=== PATIENT | female | born 1955 ===

== ENCOUNTER 2023-09-05 08:00 | Outpatient (CLI) | payer OTHER ==
[~2023-09-05] VITALS: Ht 162.6 cm; Wt 86.2 kg
[2023-09-05] MEDS ORDERED: COZAAR50 MG PO (12:31)
[2023-09-05] MEDS ORDERED: SINGULAIR10 MG PO (12:32)
[2023-09-05] MEDS ORDERED: LIPITOR40 MG PO (12:32)
[2023-09-05] MEDS ORDERED: TOPROL XL25 M1 PO (12:32)
[2023-09-05 12:39] LABS: URINE APPEARANCE Clear; URINE BILIRRUBIN Negative (NEGATIVE); URINE BLOOD Moderate; URINE COLOR Yellow; URINE GLUCOSE Negative (NEGATIVE); URINE KETONE Negative (NEGATIVE); URINE LEUKOCYTE Moderate; URINE NITRATE Negative; URINE PROTEIN Negative (NEGATIVE)
[2023-09-05 12:42] LABS: URINE BACTERIA 495.1 uL (0.0-1933); URINE EPITHELIAL CELLS 26.7 uL (0.0-38.8); URINE RBC 201.7 uL (0.0-20.8); URINE WBC 196.9 uL (0.0-23.2)
[2023-09-05 12:43] LABS: HEMATOCRIT 46.8 % (36.0-45.00); HEMOGLOBIN 15.9 g/dL (12.0-15.00); MEAN CELL VOLUME 87.4 fL (80.00-100.00); MEAN CORPUSCULAR HEMOGLOBIN 29.8 pg (27.00-32.0); MEAN CORPUSCULAR HGB CONC 34.1 g/dl (32.0-36.0); PLATELET COUNT 218 K/uL (150-450); RED BLOOD COUNT 5.35 M/uL (4.00-6.00)
[2023-09-05 12:56] LABS: PARTIAL THROMBOPLASTIN TIME 28.3 SECONDS (22.0-34.0); PROTHROMBIN TIME 10.5 SECONDS (9.0-11.5)
[2023-09-05 13:07] LABS: ALBUMIN 3.8 gm/dL (3.4-5.0); BILIRUBIN TOTAL 0.54 mg/dL (0.3-1.2); CALCIUM 9.8 mg/dL (8.5-10.1); CREATININE SERUM 0.71 mg/dL (0.55-1.02); GFR 82.62; POTASSIUM 5.22 mEq/L (3.5-5.1); TOTAL PROTEIN 6.8 gm/dL (6.4-8.2)
== END 2023-09-05 08:01 | disposition home or self-care (01) ==
LOC: LAB 08:00 → SURH 09-12 07:00 → EDSTATUS 09-12 11:30 → SURH 09-12 11:30
PROVIDERS: ATTEND Colon & Rectal Surgery
DX: C18.7 Malignant neoplasm of sigmoid colon (principal); D12.7 Benign neoplasm of rectosigmoid junction; Z86.010 Personal history of colon polyps

== ENCOUNTER 2024-01-25 09:00 | Inpatient (IN) | payer OTHER ==
[~2024-01-25] VITALS: Ht 162.6 cm; Wt 189.6 kg
[~2024-01-25 09:00] MED LIST: COZAAR50 MG PO; LIPITOR40 MG PO; SINGULAIR10 MG PO; TOPROL XL25 M1 PO
[2024-01-25 10:30] LABS: HEMATOCRIT 48.5 % (36.0-45.00); HEMOGLOBIN 16.4 g/dL (12.0-15.00); MEAN CELL VOLUME 86.2 fL (80.00-100.00); MEAN CORPUSCULAR HEMOGLOBIN 29.2 pg (27.00-32.0); MEAN CORPUSCULAR HGB CONC 33.8 g/dl (32.0-36.0); PLATELET COUNT 211 K/uL (150-450); RED BLOOD COUNT 5.62 M/uL (4.00-6.00); RED CELL DISTRIBUTION WIDTH 13.6 % (11.5-14.5)
[2024-01-25 10:32] LABS: PH,URINE 5.5 (5.0-8.0); URINE APPEARANCE Cloudy; URINE BILIRRUBIN Negative (NEGATIVE); URINE BLOOD Moderate; URINE COLOR Dark Yellow; URINE GLUCOSE Negative (NEGATIVE); URINE KETONE Negative (NEGATIVE); URINE LEUKOCYTE Moderate; URINE NITRATE Negative; URINE PROTEIN Trace (NEGATIVE)
[2024-01-25 10:36] LABS: URINE EPITHELIAL CELLS 174.2 uL (0.0-38.8); URINE RBC 526.7 uL (0.0-20.8); URINE WBC 482.9 uL (0.0-23.2)
[2024-01-25 10:52] LABS: URINE CAST 1.22 uL (0.0-1.40)
[2024-01-25 11:34] LABS: PARTIAL THROMBOPLASTIN TIME 28.7 SECONDS (22.0-34.0); PROTHROMBIN TIME 10.9 SECONDS (9.0-11.5)
[2024-01-25 11:48] LABS: BILIRUBIN TOTAL 0.9 mg/dL (0.3-1.2); CALCIUM 9.7 mg/dL (8.5-10.1); CREATININE SERUM 0.74 mg/dL (0.55-1.02); GFR 78.52; GLOBULINA 3.1 G/DL (2.4-3.5); POTASSIUM 5.05 mEq/L (3.5-5.1); TOTAL PROTEIN 7.1 gm/dL (6.4-8.2)
[2024-02-06] MEDS ORDERED: CEFTRIAXONE SODIUM 2,000 MG VIAL IV ONE (15:30)
[2024-02-06] MEDS ORDERED: METRONIDAZOLE/SODIUM CHLORIDE 500 MG/100 ML PIGGYBACK IV ONE (15:30)
[2024-02-06] MEDS ORDERED: OMEPRAZOLE20 MG (15:34)
[2024-02-06] MEDS ORDERED: BREO ELLIPTA I1 EACH (15:34)
[2024-02-06] MEDS ORDERED: FAMOTIDINE40 MG (15:34)
[2024-02-06] MEDS ORDERED: MORPHINE SULFATE 4 MG/ML CARTRIDGE IV PRN (17:15)
[2024-02-06] MEDS ORDERED: ONDANSETRON HCL 2 MG/ML VIAL IV PRN (17:15)
[2024-02-06] MEDS ORDERED: RINGERS SOLUTION,LACTATED 1,000 ML IV SCH (17:15)
[2024-02-06] MEDS ORDERED: OxyCODONE HCL 5 MG TABLET (ROXICODONE) PO PRN (17:15)
[2024-02-06] MEDS ORDERED: ENALAPRILAT DIHYDRATE 1.25 MG/ML VIAL IV PRN (17:45)
[2024-02-06] MEDS ORDERED: MEPERIDINE HCL/PF 50 MG/ML VIAL IV PRN (18:30)
[2024-02-06] MEDS ORDERED: MORPHINE SULFATE 4 MG/ML VIAL IV ONE (18:55)
[2024-02-06] MEDS ORDERED: ACETAMINOPHEN 500 MG GEL..CAP PO SCH (20:00)
[2024-02-06 20:31] VITALS: BP 146/80; O2SAT 94
[2024-02-06 20:32] LABS: HEMATOCRIT 43.7 % (36.0-45.00); HEMOGLOBIN 14.8 g/dL (12.0-15.00); MEAN CELL VOLUME 86.2 fL (80.00-100.00); MEAN CORPUSCULAR HEMOGLOBIN 29.2 pg (27.00-32.0); MEAN CORPUSCULAR HGB CONC 33.8 g/dl (32.0-36.0); PLATELET COUNT 197 K/uL (150-450); RED BLOOD COUNT 5.07 M/uL (4.00-6.00); RED CELL DISTRIBUTION WIDTH 13.7 % (11.5-14.5)
[2024-02-06] MEDS ORDERED: SIMETHICONE 125 MG CAPSULE PO SCH (21:00)
[2024-02-06] MEDS ORDERED: FAMOTIDINE/PF 20 MG/2 ML VIAL IV PUSH SCH (21:00)
[2024-02-06] MEDS ORDERED: MONTELUKAST SODIUM 10 MG TABLET PO SCH (21:00)
[2024-02-06] MEDS ORDERED: METOPROLOL SUCCINATE 25 MG TAB.SR.24H PO SCH (21:00)
[2024-02-06 21:12] LABS: ABG PH 7.337 (7.35-7.45); ABG PO2 67.5 mmHg (80-100); ABG pCO2 50.1 mmHg (35-45); BASE EXCESS -0.3 mmol/l; BICARBONATE 26.3 mmol/l (23-25); SaO2 91.7 %; Tco2 27.8 mmol/l
[2024-02-06 21:19] LABS: allen test SATISFACTORY; puncture site RADIAL LEFT
[2024-02-06 21:20] LABS: o2 28 %
[2024-02-06 23:28] LABS: ABG PH 7.354 (7.35-7.45); ABG PO2 87.6 mmHg (80-100); ABG pCO2 49.3 mmHg (35-45); BASE EXCESS 0.5 mmol/l; BICARBONATE 26.8 mmol/l (23-25); SaO2 96.2 %; Tco2 28.3 mmol/l
[2024-02-06 23:29] LABS: allen test SATISFACTORY; o2 40 %; puncture site RADIAL LEFT
[2024-02-07 00:20] VITALS: BP 123/64; O2SAT 96
[2024-02-07] MEDS ORDERED: GABAPENTIN 300 MG CAPSULE PO SCH (01:00)
[2024-02-07] MEDS ORDERED: METOCLOPRAMIDE HCL 5 MG/ML VIAL IV SCH (01:00)
[2024-02-07] MEDS ORDERED: CELECOXIB 200 MG CAPSULE PO SCH (05:00)
[2024-02-07 07:19] LABS: HEMATOCRIT 42.1 % (36.0-45.00); HEMOGLOBIN 14.7 g/dL (12.0-15.00); MEAN CELL VOLUME 85.6 fL (80.00-100.00); MEAN CORPUSCULAR HEMOGLOBIN 29.9 pg (27.00-32.0); PLATELET COUNT 172 K/uL (150-450); RED BLOOD COUNT 4.92 M/uL (4.00-6.00); RED CELL DISTRIBUTION WIDTH 13.5 % (11.5-14.5)
[2024-02-07 07:55] VITALS: BP 130/71; O2SAT 91
[2024-02-07 08:00] LABS: ALBUMIN 3.1 gm/dL (3.4-5.0); CALCIUM 8.6 mg/dL (8.5-10.1); CREATININE SERUM 0.63 mg/dL (0.55-1.02); GFR 94.54; MAGNESIUM 1.6 mg/dL (1.8-2.4); PHOSPHOROUS 3.7 mg/dL (2.5-4.9); POTASSIUM 4.18 mEq/L (3.5-5.1)
[2024-02-07] MEDS ORDERED: LOSARTAN POTASSIUM 50 MG TABLET PO SCH (09:00)
[2024-02-07] MEDS ORDERED: LACTOBACILLUS ACIDOPHILUS 1 CAP CAP PO SCH (09:00)
[2024-02-07] MEDS ORDERED: HYOSCYAMINE SULFATE 0.125 MG TAB.SUBL SL SCH (09:00)
[2024-02-07] MEDS ORDERED: LACTULOSE 20 G/30 ML BLIST.PACK PO SCH (09:00)
[2024-02-07] MEDS ORDERED: MAGNESIUM SULFATE IN WATER 50 ML IV NR (11:00)
[2024-02-07] MEDS ORDERED: LEVALBUTEROL HCL 0.63 MG/3 ML SOLUTION IH NR (14:30)
[2024-02-07 15:50] LABS: ABG PH 7.366 (7.35-7.45); ABG pCO2 49.6 mmHg (35-45); SaO2 88.3 %
[2024-02-07 15:51] LABS: BASE EXCESS 1.5 mmol/l; BICARBONATE 27.7 mmol/l (23-25); Tco2 29.3 mmol/l; allen test SATISFACTORY; o2 21 %; puncture site RADIAL RIGHT
[2024-02-07 16:00] VITALS: BP 112/55; O2SAT 95
[2024-02-07] MEDS ORDERED: ATORVASTATIN CALCIUM 40 MG TABLET PO SCH (17:00)
[2024-02-07] MEDS ORDERED: LEVALBUTEROL HCL 0.63 MG/3 ML SOLUTION IH SCH (17:00)
[2024-02-07] MEDS ORDERED: ENOXAPARIN SODIUM 40 MG/0.4 ML SYRINGE SUBCUTANEO SCH (17:00)
[2024-02-07] MEDS ORDERED: POLYETHYLENE GLYCOL 3350 17 GM BLIST.PACK PO SCH (17:00)
[2024-02-08 00:29] VITALS: BP 92/58; O2SAT 95
[2024-02-08 07:15] LABS: HEMATOCRIT 36.9 % (36.0-45.00); HEMOGLOBIN 12.6 g/dL (12.0-15.00); MEAN CELL VOLUME 86.7 fL (80.00-100.00); MEAN CORPUSCULAR HEMOGLOBIN 29.7 pg (27.00-32.0); MEAN CORPUSCULAR HGB CONC 34.2 g/dl (32.0-36.0); PLATELET COUNT 138 K/uL (150-450); RED BLOOD COUNT 4.25 M/uL (4.00-6.00); RED CELL DISTRIBUTION WIDTH 13.8 % (11.5-14.5)
[2024-02-08 08:00] VITALS: BP 96/61; O2SAT 97
[2024-02-08 08:08] LABS: CALCIUM 8.4 mg/dL (8.5-10.1); CREATININE SERUM 0.67 mg/dL (0.55-1.02); GFR 88.06; MAGNESIUM 2.1 mg/dL (1.8-2.4); PHOSPHOROUS 2.8 mg/dL (2.5-4.9); POTASSIUM 4.59 mEq/L (3.5-5.1)
[2024-02-08] MEDS ORDERED: ENOXAPARIN SODIUM 40 MG/0.4 ML SYRINGE SUBCUTANEO SCH (09:00)
[2024-02-08 14:31] LABS: HEMATOCRIT 37.2 % (36.0-45.00); HEMOGLOBIN 12.4 g/dL (12.0-15.00); MEAN CELL VOLUME 88.4 fL (80.00-100.00); MEAN CORPUSCULAR HEMOGLOBIN 29.6 pg (27.00-32.0); MEAN CORPUSCULAR HGB CONC 33.4 g/dl (32.0-36.0); PLATELET COUNT 160 K/uL (150-450); RED BLOOD COUNT 4.21 M/uL (4.00-6.00); RED CELL DISTRIBUTION WIDTH 13.6 % (11.5-14.5)
[2024-02-08 16:18] VITALS: BP 99/61; O2SAT 95
[2024-02-09 00:12] VITALS: BP 106/57; O2SAT 98
[2024-02-09 09:53] VITALS: BP 120/70; O2SAT 96
[2024-02-09 12:40] LABS: ABG PH 7.367 (7.35-7.45); ABG PO2 63.3 mmHg (80-100); ABG pCO2 56.9 mmHg (35-45); BASE EXCESS 4.9 mmol/l; BICARBONATE 31.9 mmol/l (23-25); SaO2 91.4 %; Tco2 33.7 mmol/l
[2024-02-09 12:41] LABS: allen test SATISFACTORY; o2 21 %; puncture site RADIAL RIGHT
[2024-02-09] MEDS ORDERED: INTESTINEX680 M1 PO (13:02)
[2024-02-09] MEDS ORDERED: NEURONTIN300 MG PO (13:02)
== END 2024-02-09 15:46 | disposition home or self-care (01) | DRG 331 ==
LOC: O/R 02-06 05:15 → SURH 02-06 09:00 → SURG 02-06 18:45
PROVIDERS: Internal Medicine Geriatric Medicine; ADMIT Colon & Rectal Surgery; ATTEND Colon & Rectal Surgery
PROC: 0DBP4ZZ Excision of Rectum, Percutaneous Endoscopic Approach (ICD-10-PCS; 2024-02-06)
PROC: 0DTN4ZZ Resection of Sigmoid Colon, Percutaneous Endoscopic Approach (ICD-10-PCS; principal; 2024-02-06 14:00)
PROC: 4A12X4Z Monitoring of Cardiac Electrical Activity, External Approach (ICD-10-PCS; 2024-02-07)
DX: C18.7 Malignant neoplasm of sigmoid colon (principal); D12.7 Benign neoplasm of rectosigmoid junction